=== PATIENT | male | born 1945 | race Caucasian/White ===

== ENCOUNTER 2020-09-03 03:14 | Emergency (ER) | payer MEDICARE, MEDICAID ==
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
[2020-09-03] MEDS ORDERED: Sodium Chloride 0.9% 10 ML Syringe FLUSH PRN (03:49)
[2020-09-03] MEDS ORDERED: Morphine 4 MG/ML VIAL IVPUSH ONE (05:17)
[2020-09-03] MEDS ORDERED: Ondansetron 4 MG/2 ML SDV IVPUSH ONE (05:17)
[2020-09-03] MEDS ORDERED: Sodium Chloride 0.9% 1,000 ML IV SCH (05:30)
--- NOTE | 2020-09-05 12:47 | CR ---
INDICATION: Fall with injury. PELVIS ONE VIEW: A single frontal view of the pelvis was obtained 09/03/20 and compared with 10/21/13. Femoral prosthesis on the left appears unchanged. A definite acute fracture or dislocation was not identified with sacroiliac joints and the right joint appearing intact. IMPRESSION: No acute fracture or dislocation. If symptoms persist - if occult fracture site is suspected clinically, reexamination in 10-14 days may be helpful. MTDD
--- NOTE | 2020-09-05 12:50 | CR ---
INDICATION: Fall with injury. LEFT FEMUR: Four views of the left femur revealed an appearance of demineralization compatible with osteomalacia or osteoporosis. A definite acute fracture or dislocation, or other acute bone or joint abnormality, was not identified. Incidentally noted were calcifications in the distal deep femoral artery and popliteal artery as well as proximal calf arteries. IMPRESSION: 1. No acute fracture or dislocation. 2. Femoral prosthesis at the hip appears intact. YONNY
--- NOTE | 2020-09-05 12:54 | CR ---
INDICATION: Fall with injury, severe pain below knee. LEFT TIBIA AND FIBULA: Four views of the left tibia and fibula revealed a comminuted spiral fracture through the distal shaft extending into the distal metaphysis of the tibia with adequate position and alignment of the fracture fragments. A fibular fracture site was not visualized. The ankle mortise as visualized imperfectly, appeared to be intact. IMPRESSION: Comminuted fracture of the distal shaft through the distal metaphysis of the tibia with adequate position and alignment suggested. MTDD
== END 2020-09-03 07:04 ==
LOC: FB.ED 03:14
DX: S82.245A Nondisplaced spiral fracture of shaft of left tibia, initial encounter for closed fracture (principal); I25.10 Atherosclerotic heart disease of native coronary artery without angina pectoris; E78.00 Pure hypercholesterolemia, unspecified; I10 Essential (primary) hypertension; E11.51 Type 2 diabetes mellitus with diabetic peripheral angiopathy without gangrene; M19.90 Unspecified osteoarthritis, unspecified site; E66.9 Obesity, unspecified; Z79.82 Long term (current) use of aspirin; Z79.4 Long term (current) use of insulin; W01.0XXA Fall on same level from slipping, tripping and stumbling without subsequent striking against object, initial encounter
CPT/HCPCS: 29515; 36415; 72170; 73552; 73590; 80053; 83735; 85025; 86140; 96374; 96375; 99285; J2270; J2405; J7030

== ENCOUNTER 2020-10-11 17:58 | Emergency (ER) | payer MEDICARE, MEDICAID ==
[2020-10-11] MEDS ORDERED: Ondansetron 4 MG Tab.DIS PO ONE (17:59)
[2020-10-11] MEDS ORDERED: Sodium Chloride 0.9% 10 ML Syringe FLUSH PRN (18:10)
[2020-10-11] MEDS: Dextrose 5%-0.9% NaCl 1,000 ML IV SCH (18:26)
[2020-10-11] MEDS: Ondansetron 4 MG/2 ML SDV IVPUSH STA (18:26)
[2020-10-11] MEDS: Metoclopramide 10 MG/2 ML SDV IVPUSH PRN (19:41)
[2020-10-11] MEDS: Promethazine 25 MG/ML SDV IM ONE (19:53)
[2020-10-11] MEDS: Iopamidol 755 Mg/ML 100 ML Bottle IV ONE (19:56)
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
--- NOTE | 2020-10-12 11:01 | CR ---
CHEST ONE VIEW 5472 INDICATION: Persistent nausea and vomiting. An AP upright portable view of the chest 10/11/2020 was compared with 01/15/2012 and 08/10/2013. The heart remains normal in size and shape. The aorta is calcified in the arch area. There is suggestion of some patchy infiltration at the left lateral lung base and possibly behind the heart raising question of a patchy pneumonia in the left lower lobe. No free air is noted under the hemidiaphragm leaves. Evidence of exogenous obesity is again noted. IMPRESSION: 1. Question patchy pneumonia at the left lower lobe and possibly lingula. 2. ASD aorta. 3. Exogenous obesity. MTDD
== END 2020-10-11 21:25 ==
LOC: FB.ED 17:58
DX: E86.0 Dehydration (principal); K52.9 Noninfective gastroenteritis and colitis, unspecified; I25.10 Atherosclerotic heart disease of native coronary artery without angina pectoris; E78.00 Pure hypercholesterolemia, unspecified; I10 Essential (primary) hypertension; M19.90 Unspecified osteoarthritis, unspecified site; E11.9 Type 2 diabetes mellitus without complications; E66.9 Obesity, unspecified; Z79.82 Long term (current) use of aspirin; Z79.4 Long term (current) use of insulin; Z79.899 Other long term (current) drug therapy
CPT/HCPCS: 36415; 71045; 74177; 80053; 82962; 84484; 85025; 93005; 96372; 96374; 96375; 99284; A9270; J2405; J2550; J2765; Q9967

== ENCOUNTER 2020-10-12 11:30 | Observation (INO) | payer MEDICARE, MEDICAID ==
[2020-10-12] MEDS ORDERED: Sodium Chloride 0.9% 1,000 ML IV ONE (11:40)
[2020-10-12] MEDS ORDERED: Metoclopramide 10 MG/2 ML SDV IVPUSH ONE (11:40)
[2020-10-12] MEDS ORDERED: Promethazine 25 MG/ML SDV IM ONE (11:41)
[2020-10-12] MEDS ORDERED: Piperacillin/Tazobactam 4.5 GM in Sodium Chloride 0.9% 100 ML IV STA (13:04)
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
[2020-10-12] MEDS: Sodium Chloride 0.9% 1,000 ML IV SCH ×2 (13:24→23:45)
[2020-10-12] MEDS ORDERED: Ondansetron 4 MG Tab.DIS *PTOM PO PRN (14:41)
[2020-10-12] MEDS ORDERED: Metoclopramide 10 MG/2 ML SDV IVPUSH PRN (14:52)
[2020-10-12] MEDS ORDERED: Acetaminophen 325 MG Tab PO PRN (14:52)
[2020-10-12] MEDS ORDERED: Bisacodyl 10 MG Supp RECTAL PRN (14:52)
[2020-10-12] MEDS ORDERED: Magnesium Hydroxide 400 MG/5 ML Susp 30 ML Cup PO PRN (14:52)
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
--- NOTE | 2020-10-12 15:30 | CR ---
CHEST ONE VIEW 5418 INDICATION: Nausea, vomiting, elevated white blood count. AP upright portable view of the chest 10/12/2020 was compared with 10/11/2020 and 08/10/2013. Detail is limited partly due to a very poor inspiration. Infiltration at the left lung base cannot be excluded. Pulmonary vascular congestion cannot be excluded. Heart size is difficult to evaluate but did not appear grossly enlarged allowing for the poor inspiration and AP positioning. The aorta is calcified in the arch area. No definite consolidating pneumonia or effusion was seen. IMPRESSION: 1. No definite acute process but cannot exclude areas of infiltrate in the left lung base and possibly right lung base due to poor inspiration. 2. Probable ASHD. 3. Exogenous obesity. 4. Cannot exclude a mild degree of pulmonary vascular congestion wether it be cardiac or noncardiac cause. MTDD
[2020-10-12] MEDS: Enoxaparin 40 MG/0.4 ML Syringe SUBCUT SCH (17:52)
[2020-10-12] MEDS: Simvastatin 10 MG Tab **OWN MED PO SCH (18:47)
[2020-10-12] MEDS: Acetaminophen 500 MG Tab PO SCH (21:00)
[2020-10-13] MEDS: Aspirin 81 MG Tab.EC PO SCH (08:57)
[2020-10-13] MEDS: Acetaminophen 500 MG Tab PO SCH ×2 (08:59→20:22)
[2020-10-13] MEDS ORDERED: Metoprolol Succinate 25 MG Tab.ER *PTOM PO SCH (09:00)
[2020-10-13] MEDS ORDERED: Lisinopril 10 MG Tab *PTOM PO SCH (09:00)
[2020-10-13] MEDS ORDERED: 50% Dextrose in Water 50 ML Syringe IVPUSH PRN (09:46)
[2020-10-13] MEDS ORDERED: Glucagon,Human Recombinant 1 MG Vial IM PRN (09:46)
[2020-10-13] MEDS: NOVOLOG 100 UNIT/ML SUBCUT SCH ×2 (11:40→17:29)
--- NOTE | 2020-10-13 15:32 | PCM.PN ---
- General Info Date of Service: 10/13/20 Subjective Update: Shahzad has not vomited since admission. Tolerated clear liquids this morning. Denies any abdominal pain. No cough or shortness of breath. Had oxygen on overnight. Denies being short of breath or chest pain this morning. - Patient Data Vitals - Most Recent: Last Vital Signs Temp 97.6 F 10/13/20 11:28 Pulse 80 10/13/20 11:28 Resp 20 10/13/20 11:28 BP 143/81 H 10/13/20 11:28 Pulse Ox 91 L 10/13/20 11:28 Weight - Most Recent: 260 lb 8 oz I&O - Last 24 Hours: Intake & Output 10/13/20 10/13/20 10/13/20 06:59 14:59 22:59 Intake Total 880 309 Output Total 500 Balance 380 309 Lab Results Last 24 Hours: Laboratory Results - last 24 hr 10/13/20 10/13/20 Range/Units 06:45 06:45 WBC 7.1 (3.2-10.1) x10-3/uL RBC 4.25 (3.90-5.90) x10(6)uL Hgb 11.3 L (12.9-17.7) g/dL Hct 34.9 L (38.3-50.1) % MCV 81.9 (80.8-98.7) fL MCH 26.6 L (27.0-33.3) pg MCHC 32.5 (28.7-35.3) g/dL RDW 14.2 (12.4-15.0) % Plt Count 114 L (117-477) x10(3)uL MPV 9.0 (6.7-11.0) fL Neut % (Auto) 71.2 (40.3-71.8) % Lymph % (Auto) 15.8 (15.8-45.3) % [place] % (Auto) 9.2 (5.5-15.2) % Eos % (Auto) 3.3 (0.1-6.8) % Baso % (Auto) 0.5 (0.3-3.8) % Neut # (Auto) 5.1 (1.7-6.9) x10-3/uL Lymph # (Auto) 1.1 (0.5-4.5) x10-3/uL [place] # (Auto) 0.7 (0.0-1.2) x10-3/uL Eos # (Auto) 0.2 (0.0-0.6) x10-3/uL Baso # (Auto) 0.0 (0.0-0.3) x10-3/uL Sodium 142 (135-145) mmol/L Potassium 4.0 (3.5-5.3) mmol/L Chloride 105 (100-110) mmol/L Carbon Dioxide 29 (21-32) mmol/L BUN 15 (7-18) mg/dL Creatinine 1.0 (0.70-1.30) mg/dL Est Cr Clr Drug Dosing 67.93 mL/min Estimated GFR (MDRD) > 60 (>60) BUN/Creatinine Ratio 15.0 (9-20) Glucose 146 H (80-116) mg/dL Calcium 7.7 L (8.6-10.2) mg/dL Rachid Results Last 24 Hours: Microbiology 10/12/20 12:40 Aerobic Blood Culture - Preliminary Blood - Venous NO GROWTH AFTER 1 DAY Anaerobic Blood Culture - Preliminary NO GROWTH AFTER 1 DAY 10/12/20 12:50 Aerobic Blood Culture - Preliminary Blood - Venous - Lab Draw NO GROWTH AFTER 1 DAY Anaerobic Blood Culture - Preliminary NO GROWTH AFTER 1 DAY Med Orders - Current: Current Medications Acetaminophen (Acetaminophen 325 Mg Tab) 650 mg PO Q4H PRN PRN Reason: Pain/Fever Acetaminophen (Acetaminophen 500 Mg Tab) 500 mg PO BID [facility] Last Admin: 10/13/20 08:59 Dose: 500 mg Documented by: Aspirin (Aspirin 81 Mg Tab.Ec) 81 mg PO DAILY [facility] Last Admin: 10/13/20 08:57 Dose: 81 mg Documented by: Bisacodyl (Bisacodyl 10 Mg Supp) 10 mg RECTAL DAILY PRN PRN Reason: Constipation Dextrose/Water (50% Dextrose In Water 50 Ml Syringe) 50 ml IVPUSH ASDIRECTED PRN PRN Reason: Hypoglycemia Enoxaparin Sodium (Enoxaparin 40 Mg/0.4 Ml Syringe) 40 mg SUBCUT Q24H [facility] Last Admin: 10/12/20 17:52 Dose: 40 mg Documented by: Glucagon (Glucagon,Human Recombinant 1 Mg Vial) 1 mg IM ASDIRECTED PRN PRN Reason: Hypoglycemia Insulin Human Lispro (Novolog 100units/Ml *Ptom) 0 unit SUBCUT TIDMEALS [facility]; Protocol Last Admin: 10/13/20 11:40 Dose: 2 units Documented by: Lisinopril (Lisinopril 10 Mg Tab *Ptom) 10 mg PO DAILY [facility] Last Admin: 10/13/20 08:58 Dose: 10 mg Documented by: Magnesium Hydroxide (Magnesium Hydroxide 400 Mg/5 Ml Susp 30 Ml Cup) 30 ml PO DAILY PRN PRN Reason: Constipation Metoclopramide HCl (Metoclopramide 10 Mg/2 Ml Sdv) 10 mg IVPUSH Q6H PRN PRN Reason: Nausea/Vomiting Metoprolol Succinate (Metoprolol Succinate 25 Mg Tab.Er *Ptom) 25 mg PO DAILY [facility] Last Admin: 10/13/20 08:58 Dose: 25 mg Documented by: Ondansetron HCl (Ondansetron 4 Mg Tab.Dis *Ptom) 4 mg PO Q6H PRN PRN Reason: nausea, able to take PO Simvastatin (Simvastatin 10 Mg Tab Own Med) 10 mg PO DAILY@1800 [facility] Last Admin: 10/12/20 18:47 Dose: 10 mg Documented by: Discontinued Medications Sodium Chloride (Normal Saline) 1,000 mls @ 999 mls/hr IV .BOLUS ONE Stop: 10/12/20 12:40 Last Admin: 10/12/20 12:00 Dose: 999 mls/hr Documented by: Piperacillin Sod/Tazobactam (Sod 4.5 gm/ Sodium Chloride) 100 mls @ 200 mls/hr IV NOW STA Stop: 10/12/20 13:33 Last Admin: 10/12/20 13:19 Dose: 200 mls/hr Documented by: Sodium Chloride (Normal Saline) 1,000 mls @ 100 mls/hr IV ASDIRECTED [facility] Last Admin: 10/12/20 23:45 Dose: 100 mls/hr Documented by: Metoclopramide HCl (Metoclopramide 10 Mg/2 Ml Sdv) 10 mg IVPUSH ONETIME ONE Stop: 10/12/20 11:41 Last Admin: 10/12/20 12:02 Dose: 10 mg Documented by: Promethazine HCl (Promethazine 25 Mg/Ml Sdv) 25 mg IM ONETIME ONE Stop: 10/12/20 11:42 Last Admin: 10/12/20 12:02 Dose: 25 mg Documented by: - Exam General: Alert, Oriented, Cooperative, No Acute Distress Lungs: Clear to Auscultation, Normal Respiratory Effort, Crackles (LLL). No: Wheezing Cardiovascular: Regular Rate, Regular Rhythm GI/Abdominal Exam: Normal Bowel Sounds, Soft, Non-Tender, No Distention Extremities: Other (Cast on LLE, TEDs on RLE) Peripheral Pulses: 2+: Radial (L), Radial (R) - Patient Data Lab Results Last 24 hrs: Laboratory Results - last 24 hr 10/13/20 10/13/20 Range/Units 06:45 06:45 WBC 7.1 (3.2-10.1) x10-3/uL RBC 4.25 (3.90-5.90) x10(6)uL Hgb 11.3 L (12.9-17.7) g/dL Hct 34.9 L (38.3-50.1) % MCV 81.9 (80.8-98.7) fL MCH 26.6 L (27.0-33.3) pg MCHC 32.5 (28.7-35.3) g/dL RDW 14.2 (12.4-15.0) % Plt Count 114 L (117-477) x10(3)uL MPV 9.0 (6.7-11.0) fL Neut % (Auto) 71.2 (40.3-71.8) % Lymph % (Auto) 15.8 (15.8-45.3) % Pierce % (Auto) 9.2 (5.5-15.2) % Eos % (Auto) 3.3 (0.1-6.8) % Baso % (Auto) 0.5 (0.3-3.8) % Neut # (Auto) 5.1 (1.7-6.9) x10-3/uL Lymph # (Auto) 1.1 (0.5-4.5) x10-3/uL Pierce # (Auto) 0.7 (0.0-1.2) x10-3/uL Eos # (Auto) 0.2 (0.0-0.6) x10-3/uL Baso # (Auto) 0.0 (0.0-0.3) x10-3/uL Sodium 142 (135-145) mmol/L Potassium 4.0 (3.5-5.3) mmol/L Chloride 105 (100-110) mmol/L Carbon Dioxide 29 (21-32) mmol/L BUN 15 (7-18) mg/dL Creatinine 1.0 (0.70-1.30) mg/dL Est Cr Clr Drug Dosing 67.93 mL/min Estimated GFR (MDRD) > 60 (>60) BUN/Creatinine Ratio 15.0 (9-20) Glucose 146 H (80-116) mg/dL Calcium 7.7 L (8.6-10.2) mg/dL Result Diagrams: 10/13/20 06:45 10/13/20 06:45 Rachid Results Last 24 hrs: Microbiology 10/12/20 12:40 Aerobic Blood Culture - Preliminary Blood - Venous NO GROWTH AFTER 1 DAY Anaerobic Blood Culture - Preliminary NO GROWTH AFTER 1 DAY 10/12/20 12:50 Aerobic Blood Culture - Preliminary Blood - Venous - Lab Draw NO GROWTH AFTER 1 DAY Anaerobic Blood Culture - Preliminary NO GROWTH AFTER 1 DAY Sepsis Event Note - Evaluation Sepsis Screening Result: No Definite Risk - Focused Exam Vital Signs: Vital Signs Temp Pulse Pulse Resp BP BP Pulse Ox 10/13/20 11:28 97.6 F 80 20 143/81 H 91 L 10/13/20 09:01 10/13/20 08:58 76 138/73 10/13/20 08:45 10/13/20 08:37 10/13/20 08:36 97.9 F 76 20 138/73 96 10/13/20 06:00 97.9 F 82 18 112/60 92 L Pulse Ox 10/13/20 11:28 10/13/20 09:01 92 L 10/13/20 08:58 10/13/20 08:45 94 L 10/13/20 08:37 96 10/13/20 08:36 10/13/20 06:00 - Problem List & Annotations (1) Dehydration SNOMED Code(s): 76777908 Code(s): E86.0 - DEHYDRATION Status: Resolved Current Visit: Yes (2) Gastroenteritis SNOMED Code(s): 07928568 Code(s): K52.9 - NONINFECTIVE GASTROENTERITIS AND COLITIS, UNSPECIFIED Status: Acute Current Visit: Yes (3) Nausea and vomiting SNOMED Code(s): 00063419 Code(s): R11.2 - NAUSEA WITH VOMITING, UNSPECIFIED Status: Resolved Current Visit: Yes (4) Closed left tibial fracture SNOMED Code(s): 998991516, 25796848127611203 Code(s): S82.202A - UNSP FRACTURE OF SHAFT OF LEFT TIBIA, INIT FOR CLOS FX Status: Acute Current Visit: No Qualifiers: Encounter type: initial encounter Tibia location: shaft Fracture morphology: spiral Fracture alignment: nondisplaced Qualified Code(s): S8 2.245A - Nondisplaced spiral fracture of shaft of left tibia, initial encounter for closed fracture (5) Diabetes SNOMED Code(s): 71188497 Code(s): E11.9 - TYPE 2 DIABETES MELLITUS WITHOUT COMPLICATIONS Status: Chronic Current Visit: Yes - Problem List Review Problem List Initiated/Reviewed/Updated: Yes - My Orders Last 24 Hours: My Active Orders 10/12/20 14:41 Patient Status [ADT] Routine Oxygen Therapy [RC] PRN Up to Chair [RC] TID Vital Signs [RC] Q4H Ondansetron [Zofran ODT] 4 mg PO Q6H PRN Resuscitation Status Routine 10/12/20 14:45 Antiembolic Hose [OM.PC] Per Unit Routine 10/12/20 14:52 Acetaminophen [TylenoL] 650 mg PO Q4H PRN Magnesium Hydroxide [Milk of Magnesia] 30 ml PO DAILY PRN Metoclopramide [Reglan] 10 mg IVPUSH Q6H PRN bisacodyL [Dulcolax] 10 mg RECTAL DAILY PRN 10/12/20 17:00 Enoxaparin [Lovenox] 40 mg SUBCUT Q24H 10/12/20 18:45 Simvastatin [Zocor] 10 mg PO DAILY@1800 10/12/20 21:00 Acetaminophen [Tylenol Extra Strength] 500 mg PO BID 10/13/20 08:35 Convert IV to Peripheral Lock [Convert IV to Saline Lock] [OM.PC] Routine 10/13/20 09:00 Aspirin [Halfprin] 81 mg PO DAILY Metoprolol Succinate [Toprol XL] 25 mg PO DAILY lisinopriL [Prinivil] 10 mg PO DAILY 10/13/20 09:46 Blood Glucose Check, Bedside [RC] WITHMEALSANDBED Dextrose 50% in Water 50 ml IVPUSH ASDIRECTED PRN Glucagon,Human Recombinant [GlucaGen] 1 mg IM ASDIRECTED PRN 10/13/20 Lunch Soft Diet [DIET] 10/13/20 12:00 Insulin Lispro [HumaLOG] See Protocol SUBCUT TIDMEALS 10/14/20 Breakfast Consistent Carbohydrate Diet [DIET] - Plan Plan:: 1. Gastroenteritis/dehydration: WBC 7.1. Saline lock. Zofran ODT and Reglan IV as needed nausea/vomiting. 2. DM: restart insulin will do NovoLog sliding scale as just advancing his diet, repeat labs in am. Start Accuchecks ac&hs. 3. Diet: advance to soft consistent carb diet. 4. If tolerates advancement of diet, plan to discharge tomorrow. 5. Adjust treatments as necessary.
[2020-10-13] MEDS: Enoxaparin 40 MG/0.4 ML Syringe SUBCUT SCH (16:57)
[2020-10-13] MEDS: Simvastatin 10 MG Tab **OWN MED PO SCH (17:31)
[2020-10-14] MEDS ORDERED: Furosemide 20 MG/2 ML VIAL IVPUSH ONE (08:00)
--- NOTE | 2020-10-14 09:22 | PCM.DCSUM1 ---
Discharge Summary - Hospital Course HPI Initial Comments: Shahzad present with 1 day history of nausea, vomiting. Started yesterday at supper, was feeling fine when he sat down to eat but started vomiting when he got back to his room. Was seen in ER last night received IV fluids, antiemetics and sent back to [facility]. Continue to vomit this morning when he tried to eat breakfast, 4 emesis today so return to ER. WBC is elevated from yesterday 10.5 to 13.4. Denies any fevers, chills, sore throat, shortness of breath, chest pain. No diarrhea, hematemesis, black or bloody stool. States emesis was initially undigested food, then more white milky fluid. He does drink milk with all his meals. No dysuria, hematuria, frequency. No rashes. He feels it was the food as he felt fine before supper last night. States he is always hungry. Electrolytes were within normal limits in ER. Covid negative. Completed Covid vaccination first part of Aug 2020. He sustained left tibia fracture beginning of Aug, non weight bearing, requiring full body lift. Diagnosis: Stroke: No - Discharge Data Discharge Date: 10/14/20 Discharge Disposition: DC/Tfer to SNF 03 Condition: Good - Referral to Home Health Date of Face to Face Encounter: 10/14/20 Reason for Homebound Status: [facility] Resident Primary Care Physician: Temo Rodriguez MD Skilled Need: Nursing, PT/OT, medications - Discharge Diagnosis/Problem(s) (1) Dehydration SNOMED Code(s): 46564258 ICD Code: E86.0 - DEHYDRATION Status: Resolved Current Visit: Yes (2) Gastroenteritis SNOMED Code(s): 38649202 ICD Code: K52.9 - NONINFECTIVE GASTROENTERITIS AND COLITIS, UNSPECIFIED Status: Resolved Current Visit: Yes (3) Nausea and vomiting SNOMED Code(s): 81457121 ICD Code: R11.2 - NAUSEA WITH VOMITING, UNSPECIFIED Status: Resolved Current Visit: Yes (4) Closed left tibial fracture SNOMED Code(s): 909147242, 81066587985572672 ICD Code: S82.202A - UNSP FRACTURE OF SHAFT OF LEFT TIBIA, INIT FOR CLOS FX Status: Acute Current Visit: No Qualifiers: Encounter type: initial encounter Tibia location: shaft Fracture morphology: spiral Fracture alignment: nondisplaced Qualified Code(s): S82.245A - Nondisplaced spiral fracture of shaft of left tibia, initial encounter for closed fracture (5) Diabetes SNOMED Code(s): 95427305 ICD Code: E11.9 - TYPE 2 DIABETES MELLITUS WITHOUT COMPLICATIONS Status: Chronic Current Visit: Yes - Patient Summary/Data Hospital Course: Shahzad was given IV fluids at 100 ml/hr, zofran & reglan given in ER. He had no further emesis since admission. His diet was advanced, started insulin sliding scale when he was on clears, tolerated this. Advanced to soft consistent carb diet, which he tolerated. Resumed his home insulin regiment when he was advanced to consistent carb diet. He had no abdominal pain, nausea or vomiting with diet advancement. He remained afebrile, WBC was normal at 7.1 yesterday. Labs corrected with IVF, they were discontinued 10/13, had some crackles on exam, they did improved throughout day, started Incentive spirometry. His home medication cassette last doses were 10/13, had no new cassettes to give his morning medications so will have to have these once he gets back to [facility]. Did give Lasix 20 mg x 1 for his blood pressure this morning since his metoprolol and Lisinopril he won't get until he gets back home. - Patient Instructions Diet: Usual Diet as Tolerated Activity: Non Weight Bearing Driving: Do Not Drive Notify Provider of: Fever, Increased Pain, Nausea and/or Vomiting Other/Special Instructions: Follow up with Dr Rodriguez in 1 week for post hospital visit. - Discharge Plan *PRESCRIPTION DRUG MONITORING PROGRAM REVIEWED*: Not Applicable *COPY OF PRESCRIPTION DRUG MONITORING REPORT IN PATIENT CEFERINO: Not Applicable Home Medications: Home Meds RX: Acetaminophen [Tylenol] 650 mg PO Q4H PRN 08/10/13 [History] RX: Insulin Aspart [NovoLOG] 20 unit SQ BID@08,12 09/03/20 [History] RX: Insulin Detemir [Levemir] 36 unit SQ BEDTIME 09/03/20 [History] RX: Multivit-Min/FA/Lycopene/Lut [Senior Tabs] 1 each PO DAILY 09/03/20 [History] RX: Acetaminophen [Tylenol Extra Strength] 500 mg PO BID 10/11/20 [History] RX: Cholecalciferol (Vitamin D3) [Vitamin D3] 25 mcg PO DAILY 10/11/20 [History] RX: Insulin Aspart [NovoLOG] 8 unit SQ 1700 10/11/20 [History] RX: Insulin Detemir [Levemir] 22 unit SUBCUT DAILY 10/11/20 [History] RX: Metoprolol Succinate 25 mg PO DAILY 10/11/20 [History] RX: lisinopriL [Lisinopril] 10 mg PO DAILY 10/11/20 [History] RX: Aspirin [Halfprin] 81 mg PO DAILY 10/12/20 [History] RX: Bisacodyl [Laxative Suppository] 10 mg RC DAILY PRN 10/12/20 [History] RX: Diclofenac Sodium [Voltaren 1% Gel] 2 gm TOP BID PRN 10/12/20 [History] RX: Magnesium Hydroxide [Milk of Magnesia] 30 ml PO DAILY PRN 10/12/20 [History] RX: Nystatin [Nystop] 1 applic TP BID PRN 10/12/20 [History] RX: Ondansetron [Zofran ODT] 4 mg PO Q4H PRN 10/12/20 [History] RX: Simvastatin [Zocor] 10 mg PO QPM 10/12/20 [History] Oxygen Therapy Mode: Room Air Patient Handouts: Nausea and Vomiting, Adult, [id number], Fall Prevention in Hospitals, Adult Forms: ED Department Discharge Referrals: Temo Rodriguez MD [Primary Care Provider] - - Discharge Summary/Plan Comment DC Time >30 min.: No - General Info Date of Service: 10/14/20 Subjective Update: Shahzad denies any abdominal pain, nausea or vomiting. No fevers, chills. no shortness of breath or chest pain. Had a cough this morning when they got him up but nothing since. Not sure why he is here. - Patient Data Vitals - Most Recent: Last Vital Signs Temp 98.0 F 10/13/20 21:59 Pulse 85 10/13/20 21:59 Resp 18 10/14/20 02:00 BP 125/55 L 10/13/20 21:59 Pulse Ox 93 L 10/13/20 21:59 Weight - Most Recent: 260 lb 8 oz Lab Results - Last 24 hrs: Laboratory Results - last 24 hr 10/13/20 10/13/20 10/13/20 Range/Units 11:37 16:59 20:18 POC Glucose 180 H 180 H 269 H (74-100) mg/dL BREANNE Results - Last 24 hrs: Microbiology 10/12/20 12:40 Aerobic Blood Culture - Preliminary Blood - Venous NO GROWTH AFTER 1 DAY Anaerobic Blood Culture - Preliminary NO GROWTH AFTER 1 DAY 10/12/20 12:50 Aerobic Blood Culture - Preliminary Blood - Venous - Lab Draw NO GROWTH AFTER 1 DAY Anaerobic Blood Culture - Preliminary NO GROWTH AFTER 1 DAY Med Orders - Current: Current Medications Acetaminophen (Acetaminophen 325 Mg Tab) 650 mg PO Q4H PRN PRN Reason: Pain/Fever Acetaminophen (Acetaminophen 500 Mg Tab) 500 mg PO BID COUNTS INCLUDE 234 BEDS AT THE [facility] Last Admin: 10/13/20 20:22 Dose: 500 mg Documented by: Aspirin (Aspirin 81 Mg Tab.Ec) 81 mg PO DAILY COUNTS INCLUDE 234 BEDS AT THE [facility] Last Admin: 10/13/20 08:57 Dose: 81 mg Documented by: Bisacodyl (Bisacodyl 10 Mg Supp) 10 mg RECTAL DAILY PRN PRN Reason: Constipation Dextrose/Water (50% Dextrose In Water 50 Ml Syringe) 50 ml IVPUSH ASDIRECTED PRN PRN Reason: Hypoglycemia Enoxaparin Sodium (Enoxaparin 40 Mg/0.4 Ml Syringe) 40 mg SUBCUT Q24H COUNTS INCLUDE 234 BEDS AT THE [facility] Last Admin: 10/13/20 16:57 Dose: 40 mg Documented by: Glucagon (Glucagon,Human Recombinant 1 Mg Vial) 1 mg IM ASDIRECTED PRN PRN Reason: Hypoglycemia Lisinopril (Lisinopril 10 Mg Tab *Ptom) 10 mg PO DAILY COUNTS INCLUDE 234 BEDS AT THE [facility] Last Admin: 10/13/20 08:58 Dose: 10 mg Documented by: Magnesium Hydroxide (Magnesium Hydroxide 400 Mg/5 Ml Susp 30 Ml Cup) 30 ml PO DAILY PRN PRN Reason: Constipation Metoclopramide HCl (Metoclopramide 10 Mg/2 Ml Sdv) 10 mg IVPUSH Q6H PRN PRN Reason: Nausea/Vomiting Metoprolol Succinate (Metoprolol Succinate 25 Mg Tab.Er *Ptom) 25 mg PO DAILY COUNTS INCLUDE 234 BEDS AT THE [facility] Last Admin: 10/13/20 08:58 Dose: 25 mg Documented by: (Insulin Aspart [ Novolog] 100 Unit/Ml Pen) *Ptom 8 unit SQ 1700 COUNTS INCLUDE 234 BEDS AT THE [facility] (Insulin Aspart [ Novolog] 100 Unit/Ml Pen) *Ptom 20 unit SQ BID@08,12 TESHA (Insulin Detemir [ Levemir] 100 Unit/Ml Pen) *Ptom 22 unit SUBCUT DAILY TESHA (Insulin Detemir [ Levemir] 100 Unit/Ml Vial) *Ptom 36 unit SQ BEDTIME TESHA Ondansetron HCl (Ondansetron 4 Mg Tab.Dis *Ptom) 4 mg PO Q6H PRN PRN Reason: nausea, able to take PO Simvastatin (Simvastatin 10 Mg Tab Own Med) 10 mg PO DAILY@1800 TESHA Last Admin: 10/13/20 17:31 Dose: 10 mg Documented by: Discontinued Medications Furosemide (Furosemide 20 Mg/2 Ml Vial) 20 mg IVPUSH NOW ONE Stop: 10/14/20 08:01 Sodium Chloride (Normal Saline) 1,000 mls @ 999 mls/hr IV .BOLUS ONE Stop: 10/12/20 12:40 Last Admin: 10/12/20 12:00 Dose: 999 mls/hr Documented by: Piperacillin Sod/Tazobactam (Sod 4.5 gm/ Sodium Chloride) 100 mls @ 200 mls/hr IV NOW STA Stop: 10/12/20 13:33 Last Admin: 10/12/20 13:19 Dose: 200 mls/hr Documented by: Sodium Chloride (Normal Saline) 1,000 mls @ 100 mls/hr IV ASDIRECTED COUNTS INCLUDE 234 BEDS AT THE [facility] Last Admin: 10/12/20 23:45 Dose: 100 mls/hr Documented by: Insulin Human Lispro (Novolog 100units/Ml *Ptom) 0 unit SUBCUT TIDMEALS COUNTS INCLUDE 234 BEDS AT THE [facility]; Protocol Last Admin: 10/13/20 17:29 Dose: 2 units Documented by: Metoclopramide HCl (Metoclopramide 10 Mg/2 Ml Sdv) 10 mg IVPUSH ONETIME ONE Stop: 10/12/20 11:41 Last Admin: 10/12/20 12:02 Dose: 10 mg Documented by: Promethazine HCl (Promethazine 25 Mg/Ml Sdv) 25 mg IM ONETIME ONE Stop: 10/12/20 11:42 Last Admin: 10/12/20 12:02 Dose: 25 mg Documented by: - Exam General: Reports: Alert, Oriented, Cooperative, No Acute Distress Lungs: Reports: Clear to Auscultation, Normal Respiratory Effort, Crackles (occasional). Denies: Wheezing Cardiovascular: Reports: Regular Rate, Regular Rhythm GI/Abdominal Exam: Normal Bowel Sounds, Soft, Non-Tender, No Distention Extremities: Other (cast on LLE)
[2020-10-14] MEDS: INSULIN ASPART 100 UNIT/ML SQ SCH ×2 (09:27→09:32)
[2020-10-14] MEDS: Acetaminophen 500 MG Tab PO SCH (09:28)
[2020-10-14] MEDS: INSULIN DETEMIR 100 UNIT/ML SUBCUT SCH ×2 (09:28→09:33)
[2020-10-14] MEDS: Aspirin 81 MG Tab.EC PO SCH (09:30)
[2020-10-14] MEDS ORDERED: Furosemide 20 MG Tab ONE (10:03)
[2020-10-14] MEDS ORDERED: Furosemide 20 MG Tab PO ONE (10:15)
[2020-10-14] MEDS ORDERED: INSULIN ASPART 100 UNIT/ML SQ SCH (17:00)
[2020-10-14] MEDS ORDERED: INSULIN DETEMIR 100 UNIT/ML SQ SCH (21:00)
== END 2020-10-14 10:10 ==
LOC: FB.ED 11:30 → INTOOBSV 14:00 → FB.MS 14:00
PROVIDERS: ADMIT Family Medicine; ATTEND Family Medicine
DX: K52.9 Noninfective gastroenteritis and colitis, unspecified (principal); I25.10 Atherosclerotic heart disease of native coronary artery without angina pectoris; E78.00 Pure hypercholesterolemia, unspecified; S82.202A Unspecified fracture of shaft of left tibia, initial encounter for closed fracture; E11.51 Type 2 diabetes mellitus with diabetic peripheral angiopathy without gangrene; E66.9 Obesity, unspecified; E86.0 Dehydration; Z20.822 Contact with and (suspected) exposure to COVID-19; Z79.899 Other long term (current) drug therapy; Z79.82 Long term (current) use of aspirin; Z98.890 Other specified postprocedural states; Z87.891 Personal history of nicotine dependence; Z79.4 Long term (current) use of insulin
CPT/HCPCS: 36415; 71045; 80048; 80053; 82962; 83605; 85025; 87040; 94150; 94760; 96365; 96372; 96375; 99283; 99285-25; A9270-GY; G0378; J1650; J1815; J2543; J2550; J2765; J7030; U0002

== ENCOUNTER 2022-11-16 21:10 | Emergency (ER) | payer MEDICARE, MEDICAID ==
[2022-11-16] MEDS ORDERED: Sodium Chloride 0.9% 10 ML Syringe FLUSH PRN (21:21)
[2022-11-16] MEDS ORDERED: Sodium Chloride 0.9% 1,000 ML IV SCH (21:30)
[2022-11-16 21:50] LABS: BASOPHILS PERCENT AUTO 0.2 % (0.3-3.8); EOSINOPHILS PERCENT AUTO 0.1 % (0.1-6.8); HEMATOCRIT 42.3 % (38.3-50.1); HEMOGLOBIN 13.9 g/dL (12.9-17.7); LYMPHOCYTES ABSOLUTE AUTO 0.8 x10-3/uL (0.5-4.5); LYMPHOCYTES PERCENT AUTO 9.6 % (15.8-45.3); MEAN CORPUSCULAR HEMOGLOBIN 27.2 pg (27.0-33.3); MEAN CORPUSCULAR HGB CONC 32.9 g/dL (28.7-35.3); MEAN CORPUSCULAR VOLUME 82.6 fL (80.8-98.7); MEAN PLATELET VOLUME 8.4 fL (6.7-11.0); MONOCYTES ABSOLUTE AUTO 1.1 x10-3/uL (0.0-1.2); MONOCYTES PERCENT AUTO 12.6 % (5.5-15.2); NEUTROPHILS ABSOLUTE AUTO 6.6 x10-3/uL (1.7-6.9); NEUTROPHILS PERCENT AUTO 77.5 % (40.3-71.8); PLATELET COUNT,PLT 100 x10(3)uL (117-477); RED BLOOD CELL COUNT 5.12 x10(6)uL (3.90-5.90); RED CELL DISTRIBUTION WIDTH 14.1 % (12.4-15.0); WHITE BLOOD CELL COUNT,WBC 8.6 x10-3/uL (3.2-10.1)
[2022-11-16 21:57] LABS: A/G RATIO 0.7; ALANINE AMINOTRANSFERASE,ALT 47 U/L (12-36); ALBUMIN 3.4 g/dL (3.2-4.6); ALKALINE PHOSPHATASE 83 IU/L (56-112); ASPARTATE AMNIOTRANSFERASE,AST 38 IU/L (5-25); BILIRUBIN TOTAL 0.6 mg/dL (0.1-1.3); BLOOD UREA NITROGEN,BUN 27 mg/dL (7-18); BUN/CREATININE RATIO 20.8 (9-20); CALCIUM 9.4 mg/dL (8.6-10.2); CARBON DIOXIDE,CO2 30 mmol/L (21-32); CHLORIDE,CL 97 mmol/L (100-110); CREATININE 1.3 mg/dL (0.70-1.30); ESTIMATED GFR 57 mL/min (>60); GLUCOSE RANDOM 466 mg/dL (80-116); POTASSIUM,K 4.3 mmol/L (3.5-5.3); SODIUM,NA 134 mmol/L (135-145)
[2022-11-16] MEDS ORDERED: Glucagon,Human Recombinant 1 MG Vial IM PRN (22:06)
[2022-11-16] MEDS ORDERED: 50% Dextrose in Water 50 ML Syringe IVPUSH PRN (22:06)
[2022-11-16] MEDS ORDERED: Insulin Regular, Human 100 Units/ML 3 ML Vial SUBCUT ONE (22:06)
[2022-11-17] MEDS ORDERED: Insulin Regular, Human 10 UNIT in Dextrose 10% in Water 499.9 ML IV SCH ×2 (00:15)
[2022-11-17] MEDS ORDERED: Insulin Regular, Human 100 Units/ML 3 ML Vial IV ONE (00:24)
[2022-11-17] MEDS ORDERED: Insulin Regular in 0.9 % NACL 100 ML IV SCH (00:30)
[2022-11-17] MEDS ORDERED: Insulin Regular in 0.9 % NACL 100 ML IV STA (01:10)
[2022-11-17] MEDS ORDERED: Sodium Chloride 0.9% 1,000 ML IV SCH (01:15)
[2022-11-17 02:01] LABS: APPEARANCE,URINE SLIGHTLY CLOUDY (CLEAR); BACTERIA,URINE MANY (NS); BILIRUBIN,URINE NEGATIVE (NEGATIVE); COLOR,URINE YELLOW (YELLOW); EPITHELIAL CELLS,URINE OCCASIONAL; GLUCOSE,URINE >1000 mg/dL (NORMAL); KETONES,URINE NEGATIVE (NEGATIVE); LEUKOCYTE ESTERASE,URINE MODERATE (NEGATIVE); NITRITE,URINE NEGATIVE (NEGATIVE); OCCULT BLOOD,URINE LARGE (NEGATIVE); PROTEIN,URINE 30 mg/dL (NEGATIVE); UROBILINOGEN,URINE NORMAL (NEGATIVE); WBC,URINE 40-50 (0-5)
== END 2022-11-17 03:20 ==
LOC: FB.ED 21:10
DX: E11.65 Type 2 diabetes mellitus with hyperglycemia (principal); I25.10 Atherosclerotic heart disease of native coronary artery without angina pectoris; I10 Essential (primary) hypertension; E78.00 Pure hypercholesterolemia, unspecified; E66.9 Obesity, unspecified; Z79.4 Long term (current) use of insulin; Z79.899 Other long term (current) drug therapy
CPT/HCPCS: 36415; 71045; 80053; 81001; 82947; 83605; 85025; 86140; 87086; 87088; 87186; 96360; 96361; 99283; 99285-25; C1758; J1815-GY; J7030

== ENCOUNTER 2023-07-26 11:42 | Emergency (ER) | payer MEDICARE, MEDICAID ==
[2023-07-26] MEDS ORDERED: Albuterol/Ipratropium 3.0-0.5 MG/3 ML Neb Soln NEB ONE (12:28)
[2023-07-26 12:49] LABS: BASOPHILS PERCENT AUTO 0.1 % (0.3-3.8); HEMATOCRIT 40.8 % (38.3-50.1); HEMOGLOBIN 13.4 g/dL (12.9-17.7); LYMPHOCYTES ABSOLUTE AUTO 1.1 x10-3/uL (0.5-4.5); LYMPHOCYTES PERCENT AUTO 7.9 % (15.8-45.3); MEAN CORPUSCULAR HEMOGLOBIN 27.4 pg (27.0-33.3); MEAN CORPUSCULAR HGB CONC 32.9 g/dL (28.7-35.3); MEAN CORPUSCULAR VOLUME 83.5 fL (80.8-98.7); MONOCYTES ABSOLUTE AUTO 1.3 x10-3/uL (0.0-1.2); MONOCYTES PERCENT AUTO 9.6 % (5.5-15.2); NEUTROPHILS ABSOLUTE AUTO 11.1 x10-3/uL (1.7-6.9); NEUTROPHILS PERCENT AUTO 82.4 % (40.3-71.8); PLATELET COUNT,PLT 111 x10(3)uL (117-477); RED BLOOD CELL COUNT 4.89 x10(6)uL (3.90-5.90); RED CELL DISTRIBUTION WIDTH 14.6 % (12.4-15.0); WHITE BLOOD CELL COUNT,WBC 13.5 x10-3/uL (3.2-10.1)
[2023-07-26 13:00] LABS: BASE EXCESS VENOUS,POC 3 mmol/L (-2 - 3+); PCO2 VENOUS,POC 33 mmHg (41-51)
[2023-07-26 13:04] LABS: A/G RATIO 0.7; ALANINE AMINOTRANSFERASE,ALT 31 U/L (12-36); ALKALINE PHOSPHATASE 56 IU/L (56-112); ASPARTATE AMNIOTRANSFERASE,AST 19 IU/L (5-25); BILIRUBIN TOTAL 0.5 mg/dL (0.1-1.3); BLOOD UREA NITROGEN,BUN 29 mg/dL (7-18); BUN/CREATININE RATIO 22.3 (9-20); CALCIUM 8.9 mg/dL (8.6-10.2); CARBON DIOXIDE,CO2 30 mmol/L (21-32); CHLORIDE,CL 96 mmol/L (100-110); CREATININE 1.3 mg/dL (0.70-1.30); ESTIMATED GFR 57 mL/min (>60); POTASSIUM,K 4.3 mmol/L (3.5-5.3); PROTEIN TOTAL,TP 7.3 g/dL (6.0-8.0); SODIUM,NA 133 mmol/L (135-145)
[2023-07-26 13:10] LABS: TROPONIN I 15.7 pg/mL (4.0-60.3)
[2023-07-26 13:14] LABS: GLUCOSE RANDOM 449 mg/dL (80-116)
[2023-07-26 13:15] LABS: LACTIC ACID 2.4 mmol/L (0.4-2.0)
[2023-07-26 13:41] LABS: BILIRUBIN,URINE NEGATIVE (NEGATIVE); GLUCOSE,URINE 250 mg/dL (NORMAL); KETONES,URINE 15 mg/dL (NEGATIVE); LEUKOCYTE ESTERASE,URINE NEGATIVE (NEGATIVE); NITRITE,URINE NEGATIVE (NEGATIVE); OCCULT BLOOD,URINE NEGATIVE (NEGATIVE); PROTEIN,URINE 30 mg/dL (NEGATIVE); UROBILINOGEN,URINE NORMAL (NEGATIVE)
[2023-07-26 13:44] LABS: APPEARANCE,URINE SLIGHTLY CLOUDY (CLEAR); BACTERIA,URINE FEW (NS); COARSE GRANULAR CASTS,URINE FEW (NS); COLOR,URINE YELLOW (YELLOW); RBC,URINE 0-5 (0-5); SQUAMOUS EPITHELIAL CELLS,UR FEW (NS,R,O); WBC,URINE 0-5 (0-5)
[2023-07-26 13:49] LABS: INFLUENZA A NAA NEGATIVE (NEGATIVE); INFLUENZA B NAA NEGATIVE (NEGATIVE)
[2023-07-26 14:01] LABS: CORONAVIRUS COVID-19 NAA NEGATIVE (NEGATIVE)
[2023-07-26] MEDS ORDERED: Sodium Chloride 0.9% 1,000 ML IV SCH (15:00)
[2023-07-26] MEDS ORDERED: Piperacillin/Tazobactam 4.5 GM in Sodium Chloride 0.9% 100 ML IV STA (15:45)
[2023-07-26] MEDS ORDERED: VANCOmycin 2 GM/400 ML 2 GM in Premix Bag 1 BAG IV STA (15:45)
[2023-07-26] MEDS ORDERED: Insulin Lispro 100 Unit/ML 3 ML KwikPen SUBCUT STA (17:44)
[2023-07-26] MEDS ORDERED: 50% Dextrose in Water 50 ML Syringe IVPUSH PRN (17:44)
[2023-07-26] MEDS ORDERED: Glucagon,Human Recombinant 1 MG Vial IM PRN (17:44)
[2023-07-26 19:22] LABS: LACTIC ACID 1.7 mmol/L (0.4-2.0)
== END 2023-07-26 20:50 ==
LOC: FB.ED 11:42
DX: A41.9 Sepsis, unspecified organism (principal); R09.02 Hypoxemia; E11.9 Type 2 diabetes mellitus without complications; I10 Essential (primary) hypertension; E78.5 Hyperlipidemia, unspecified; I25.10 Atherosclerotic heart disease of native coronary artery without angina pectoris; E11.319 Type 2 diabetes mellitus with unspecified diabetic retinopathy without macular edema; E66.9 Obesity, unspecified; Z68.41 Body mass index [BMI] 40.0-44.9, adult; Z79.4 Long term (current) use of insulin; Z79.82 Long term (current) use of aspirin; Z79.899 Other long term (current) drug therapy; Z20.822 Contact with and (suspected) exposure to COVID-19
CPT/HCPCS: 0240U; 36415; 71045; 80053; 81001; 82947; 83605; 83880; 84484; 85025; 87040; 93005; 94640; 96365; 96366; 96367; 99285; J2543; J3370; J3490; J7030; J7620

== ENCOUNTER 2023-08-03 11:59 | Emergency (ER) | payer MEDICARE, MEDICAID ==
[2023-08-03] MEDS ORDERED: Sodium Chloride 0.9% 10 ML Syringe FLUSH PRN (12:11)
[2023-08-03 12:32] LABS: BASOPHILS PERCENT AUTO 0.3 % (0.3-3.8); EOSINOPHILS ABSOLUTE AUTO 0.3 x10-3/uL (0.0-0.6); EOSINOPHILS PERCENT AUTO 2.5 % (0.1-6.8); HEMATOCRIT 39.3 % (38.3-50.1); LYMPHOCYTES ABSOLUTE AUTO 2.2 x10-3/uL (0.5-4.5); LYMPHOCYTES PERCENT AUTO 17.1 % (15.8-45.3); MEAN CORPUSCULAR HEMOGLOBIN 27.2 pg (27.0-33.3); MEAN CORPUSCULAR HGB CONC 33.1 g/dL (28.7-35.3); MEAN CORPUSCULAR VOLUME 82.2 fL (80.8-98.7); MEAN PLATELET VOLUME 8.3 fL (6.7-11.0); MONOCYTES ABSOLUTE AUTO 0.9 x10-3/uL (0.0-1.2); MONOCYTES PERCENT AUTO 6.9 % (5.5-15.2); NEUTROPHILS ABSOLUTE AUTO 9.5 x10-3/uL (1.7-6.9); NEUTROPHILS PERCENT AUTO 73.2 % (40.3-71.8); PLATELET COUNT,PLT 172 x10(3)uL (117-477); RED BLOOD CELL COUNT 4.77 x10(6)uL (3.90-5.90); RED CELL DISTRIBUTION WIDTH 14.6 % (12.4-15.0); WHITE BLOOD CELL COUNT,WBC 12.9 x10-3/uL (3.2-10.1)
[2023-08-03 12:38] LABS: BASE EXCESS VENOUS,POC 10 mmol/L (-2 - 3+); PCO2 VENOUS,POC 41 mmHg (41-51); PH VENOUS,POC 7.53 pH Units (7.32-7.43)
[2023-08-03 12:39] LABS: BLOOD UREA NITROGEN,BUN 18 mg/dL (7-18); CALCIUM 8.8 mg/dL (8.6-10.2); CARBON DIOXIDE,CO2 37 mmol/L (21-32); CHLORIDE,CL 100 mmol/L (100-110); ESTIMATED GFR 78 mL/min (>60); GLUCOSE RANDOM 210 mg/dL (80-116); SODIUM,NA 136 mmol/L (135-145)
[2023-08-03 12:45] LABS: A/G RATIO 0.7; ALANINE AMINOTRANSFERASE,ALT 39 U/L (12-36); ALBUMIN 2.6 g/dL (3.2-4.6); ALKALINE PHOSPHATASE 49 IU/L (56-112); ASPARTATE AMNIOTRANSFERASE,AST 31 IU/L (5-25); BILIRUBIN TOTAL 0.6 mg/dL (0.1-1.3); PROTEIN TOTAL,TP 6.6 g/dL (6.0-8.0)
[2023-08-03 12:51] LABS: TROPONIN I 10.3 pg/mL (4.0-60.3)
[2023-08-03 12:54] LABS: D-DIMER QUANTITATIVE 2.22 mg/LFEU (0.0-0.59); INR 1.05 (1.00-1.24); PROTHROMBIN TIME 10.8 sec (9.0-11.1); PTT,PARTIAL THROMBOPLSTIN TIME 28.9 SECONDS (24.4-33.2)
[2023-08-03 13:06] LABS: LACTIC ACID 0.6 mmol/L (0.4-2.0)
[2023-08-03 13:15] LABS: INFLUENZA A NAA NEGATIVE (NEGATIVE); INFLUENZA B NAA NEGATIVE (NEGATIVE)
[2023-08-03 13:24] LABS: BILIRUBIN,URINE NEGATIVE (NEGATIVE); GLUCOSE,URINE NORMAL (NORMAL); KETONES,URINE 15 mg/dL (NEGATIVE); LEUKOCYTE ESTERASE,URINE NEGATIVE (NEGATIVE); NITRITE,URINE NEGATIVE (NEGATIVE); OCCULT BLOOD,URINE NEGATIVE (NEGATIVE); PROTEIN,URINE NEGATIVE (NEGATIVE); UROBILINOGEN,URINE NORMAL (NEGATIVE)
[2023-08-03 13:25] LABS: CORONAVIRUS COVID-19 NAA NEGATIVE (NEGATIVE)
[2023-08-03 13:26] LABS: APPEARANCE,URINE CLEAR (CLEAR); COLOR,URINE YELLOW (YELLOW)
[2023-08-03 13:29] LABS: BACTERIA,URINE RARE (NS); MUCUS,URINE FEW (NS); RBC,URINE 0-5 (0-5); SQUAMOUS EPITHELIAL CELLS,UR FEW (NS,R,O); WBC,URINE 0-5 (0-5)
[2023-08-03] MEDS ORDERED: Albuterol/Ipratropium 3.0-0.5 MG/3 ML Neb Soln NEB ONE (13:30)
[2023-08-03] MEDS ORDERED: methylPREDNISolone Sodium Succinate 125 MG/2 ML SDV IVPUSH ONE (13:31)
[2023-08-03] MEDS ORDERED: Iopamidol 755 Mg/ML 100 ML Bottle IV SCH (15:15)
== END 2023-08-03 16:35 | disposition home or self-care (01) ==
LOC: FB.ED 11:59
DX: J45.901 Unspecified asthma with (acute) exacerbation (principal); E66.2 Morbid (severe) obesity with alveolar hypoventilation
CPT/HCPCS: 0240U; 36415; 71045; 71275; 80053; 81001; 83605; 83880; 84484; 85025; 85379; 85610; 85730; 93005; 94640; 96374; 99285; J2930; J3490; Q9967; J7620

== ENCOUNTER 2024-11-23 20:04 | Emergency (ER) | payer MEDICARE, MEDICAID ==
[2024-11-23 20:56] LABS: BASOPHILS PERCENT AUTO 0.4 % (0.3-3.8); EOSINOPHILS ABSOLUTE AUTO 0.1 x10-3/uL (0.0-0.6); HEMATOCRIT 40.8 % (38.3-50.1); HEMOGLOBIN 13.6 g/dL (12.9-17.7); LYMPHOCYTES ABSOLUTE AUTO 1.1 x10-3/uL (0.5-4.5); LYMPHOCYTES PERCENT AUTO 12.3 % (15.8-45.3); MEAN CORPUSCULAR HEMOGLOBIN 27.2 pg (27.0-33.3); MEAN CORPUSCULAR HGB CONC 33.4 g/dL (28.7-35.3); MEAN CORPUSCULAR VOLUME 81.3 fL (80.8-98.7); MEAN PLATELET VOLUME 8.7 fL (6.7-11.0); MONOCYTES ABSOLUTE AUTO 0.8 x10-3/uL (0.0-1.2); MONOCYTES PERCENT AUTO 9.3 % (5.5-15.2); NEUTROPHILS ABSOLUTE AUTO 6.7 x10-3/uL (1.7-6.9); PLATELET COUNT,PLT 101 x10(3)uL (117-477); RED BLOOD CELL COUNT 5.01 x10(6)uL (3.90-5.90); RED CELL DISTRIBUTION WIDTH 14.8 % (12.4-15.0); WHITE BLOOD CELL COUNT,WBC 8.6 x10-3/uL (3.2-10.1)
[2024-11-23 21:06] LABS: A/G RATIO 0.8; ALANINE AMINOTRANSFERASE,ALT 28 U/L (12-36); ALBUMIN 3.4 g/dL (3.2-4.6); ALKALINE PHOSPHATASE 90 IU/L (56-112); ASPARTATE AMNIOTRANSFERASE,AST 20 IU/L (5-25); BILIRUBIN TOTAL 0.3 mg/dL (0.1-1.3); BLOOD UREA NITROGEN,BUN 46 mg/dL (7-18); BUN/CREATININE RATIO 20.9 (9-20); CALCIUM 8.8 mg/dL (8.6-10.2); CARBON DIOXIDE,CO2 30 mmol/L (21-32); CHLORIDE,CL 103 mmol/L (100-110); EST CRCL DRUG DOSING (CG) 29.03 mL/min; ESTIMATED GFR 30 mL/min (>60); GLUCOSE RANDOM 287 mg/dL (80-116); POTASSIUM,K 5.3 mmol/L (3.5-5.3); PROTEIN TOTAL,TP 7.8 g/dL (6.0-8.0); SODIUM,NA 139 mmol/L (135-145)
[2024-11-23 21:11] LABS: CREATININE 2.2 mg/dL (0.70-1.30)
[2024-11-23] MEDS ORDERED: Lidocaine 2% HCl 6 ML Jel MM STA (21:13)
[2024-11-23 21:21] LABS: LACTIC ACID 1.6 mmol/L (0.4-2.0)
[2024-11-23 21:51] LABS: BILIRUBIN,URINE NEGATIVE (NEGATIVE); GLUCOSE,URINE NORMAL (NORMAL); KETONES,URINE NEGATIVE (NEGATIVE); LEUKOCYTE ESTERASE,URINE MODERATE (NEGATIVE); NITRITE,URINE NEGATIVE (NEGATIVE); OCCULT BLOOD,URINE LARGE (NEGATIVE); PROTEIN,URINE NEGATIVE (NEGATIVE); UROBILINOGEN,URINE NORMAL (NEGATIVE)
[2024-11-23 21:52] LABS: APPEARANCE,URINE CLEAR (CLEAR); COLOR,URINE YELLOW (YELLOW)
[2024-11-23 21:53] LABS: BACTERIA,URINE FEW (NS); SQUAMOUS EPITHELIAL CELLS,UR OCCASIONAL (NS,R,O)
[2024-11-23] MEDS: Sodium Chloride 0.9% 1,000 ML IV SCH (22:40)
[2024-11-23] MEDS: cefTRIAXone 1 GM Vial IVPUSH STA (22:46)
== END 2024-11-24 00:20 ==
LOC: FB.ED 20:04
DX: E86.0 Dehydration (principal); N39.0 Urinary tract infection, site not specified; I25.10 Atherosclerotic heart disease of native coronary artery without angina pectoris; E78.00 Pure hypercholesterolemia, unspecified; I10 Essential (primary) hypertension; E11.9 Type 2 diabetes mellitus without complications; Z79.899 Other long term (current) drug therapy; Z79.4 Long term (current) use of insulin; Z79.82 Long term (current) use of aspirin; Z79.51 Long term (current) use of inhaled steroids
CPT/HCPCS: 36415; 70450; 71045; 72128; 72131; 72192; 80053; 81001; 83605; 84484; 85025; 87086; 87088; 87186; 96361; 96374; 99284; 99285; C1758; J0696; J7030

== ENCOUNTER 2024-12-20 14:54 | Emergency (ER) | payer MEDICARE, MEDICAID ==
[2024-12-20] MEDS ORDERED: Lidocaine 2% HCl 6 ML Jel ONE ×2 (15:19→15:52)
[2024-12-20 15:34] LABS: BASOPHILS ABSOLUTE AUTO 0.1 x10-3/uL (0.0-0.3); BASOPHILS PERCENT AUTO 0.5 % (0.3-3.8); EOSINOPHILS ABSOLUTE AUTO 0.1 x10-3/uL (0.0-0.6); HEMATOCRIT 38.6 % (38.3-50.1); HEMOGLOBIN 12.8 g/dL (12.9-17.7); LYMPHOCYTES ABSOLUTE AUTO 1.4 x10-3/uL (0.5-4.5); LYMPHOCYTES PERCENT AUTO 9.9 % (15.8-45.3); MEAN CORPUSCULAR HEMOGLOBIN 26.4 pg (27.0-33.3); MEAN CORPUSCULAR HGB CONC 33.2 g/dL (28.7-35.3); MEAN CORPUSCULAR VOLUME 79.7 fL (80.8-98.7); MEAN PLATELET VOLUME 8.2 fL (6.7-11.0); MONOCYTES ABSOLUTE AUTO 1.1 x10-3/uL (0.0-1.2); MONOCYTES PERCENT AUTO 7.8 % (5.5-15.2); NEUTROPHILS ABSOLUTE AUTO 11.3 x10-3/uL (1.7-6.9); NEUTROPHILS PERCENT AUTO 80.8 % (40.3-71.8); PLATELET COUNT,PLT 143 x10(3)uL (117-477); RED BLOOD CELL COUNT 4.84 x10(6)uL (3.90-5.90); RED CELL DISTRIBUTION WIDTH 15.3 % (12.4-15.0); WHITE BLOOD CELL COUNT,WBC 13.9 x10-3/uL (3.2-10.1)
[2024-12-20] MEDS: Lidocaine 2% HCl 6 ML Jel ONE ×2 (15:35→16:05)
[2024-12-20 15:37] LABS: BLOOD UREA NITROGEN,BUN 30 mg/dL (7-18); CALCIUM 9.7 mg/dL (8.6-10.2); CARBON DIOXIDE,CO2 35 mmol/L (21-32); CHLORIDE,CL 104 mmol/L (100-110); CREATININE 1.5 mg/dL (0.70-1.30); ESTIMATED GFR 48 mL/min (>60); GLUCOSE RANDOM 71 mg/dL (80-116); POTASSIUM,K 5.3 mmol/L (3.5-5.3); SODIUM,NA 142 mmol/L (135-145)
== END 2024-12-20 17:25 | disposition other institution (70) ==
LOC: FB.ED 14:54
DX: R33.0 Drug induced retention of urine (principal); I25.10 Atherosclerotic heart disease of native coronary artery without angina pectoris; I10 Essential (primary) hypertension; E11.9 Type 2 diabetes mellitus without complications; E66.9 Obesity, unspecified; E78.00 Pure hypercholesterolemia, unspecified; Z79.4 Long term (current) use of insulin; Z79.82 Long term (current) use of aspirin
CPT/HCPCS: 36415; 51701; 51702; 80048; 85025; 99285; A4353; A9270

== ENCOUNTER 2025-01-10 06:36 | Emergency (ER) | payer MEDICARE, MEDICAID ==
[2025-01-10 07:17] LABS: BASOPHILS PERCENT AUTO 0.3 % (0.3-3.8); EOSINOPHILS PERCENT AUTO 0.3 % (0.1-6.8); HEMATOCRIT 38.7 % (38.3-50.1); HEMOGLOBIN 12.8 g/dL (12.9-17.7); LYMPHOCYTES ABSOLUTE AUTO 1.2 x10-3/uL (0.5-4.5); LYMPHOCYTES PERCENT AUTO 10.2 % (15.8-45.3); MEAN CORPUSCULAR HEMOGLOBIN 26.3 pg (27.0-33.3); MEAN CORPUSCULAR HGB CONC 33.2 g/dL (28.7-35.3); MEAN CORPUSCULAR VOLUME 79.1 fL (80.8-98.7); MEAN PLATELET VOLUME 8.6 fL (6.7-11.0); MONOCYTES ABSOLUTE AUTO 0.8 x10-3/uL (0.0-1.2); MONOCYTES PERCENT AUTO 6.7 % (5.5-15.2); NEUTROPHILS ABSOLUTE AUTO 9.8 x10-3/uL (1.7-6.9); NEUTROPHILS PERCENT AUTO 82.5 % (40.3-71.8); PLATELET COUNT,PLT 157 x10(3)uL (117-477); RED BLOOD CELL COUNT 4.89 x10(6)uL (3.90-5.90); RED CELL DISTRIBUTION WIDTH 15.6 % (12.4-15.0); WHITE BLOOD CELL COUNT,WBC 11.9 x10-3/uL (3.2-10.1)
[2025-01-10] MEDS: Sodium Chloride 0.9% 1,000 ML IV ONE (07:18)
[2025-01-10] MEDS: Pantoprazole 40 MG Vial IVPUSH ONE (07:18)
[2025-01-10 07:25] LABS: BLOOD UREA NITROGEN,BUN 25 mg/dL (7-18); BUN/CREATININE RATIO 20.8 (9-20); CALCIUM 9.8 mg/dL (8.6-10.2); CARBON DIOXIDE,CO2 30 mmol/L (21-32); CHLORIDE,CL 99 mmol/L (100-110); CREATININE 1.2 mg/dL (0.70-1.30); ESTIMATED GFR 62 mL/min (>60); GLUCOSE RANDOM 173 mg/dL (80-116); POTASSIUM,K 4.4 mmol/L (3.5-5.3); SODIUM,NA 137 mmol/L (135-145)
[2025-01-10 07:31] LABS: A/G RATIO 0.8; ALANINE AMINOTRANSFERASE,ALT 56 U/L (12-36); ALBUMIN 3.4 g/dL (3.2-4.6); ALKALINE PHOSPHATASE 117 IU/L (56-112); ASPARTATE AMNIOTRANSFERASE,AST 41 IU/L (5-25); BILIRUBIN TOTAL 0.7 mg/dL (0.1-1.3); PROTEIN TOTAL,TP 7.9 g/dL (6.0-8.0)
[2025-01-10] MEDS: Iopamidol 755 Mg/ML 100 ML Bottle IV ONE (08:34)
[2025-01-10] MEDS ORDERED: Sodium Chloride 0.9% 1,000 ML IV SCH ×2 (09:30→09:51)
[2025-01-10] MEDS ORDERED: Ondansetron 4 MG/2 ML SDV IV PRN (09:51)
[2025-01-10] MEDS ORDERED: Acetaminophen 325 MG Tab PO PRN (09:51)
[2025-01-10] MEDS ORDERED: Albuterol 6.7 GM Inhaler INH PRN (09:51)
[2025-01-10] MEDS ORDERED: Diclofenac Sodium 1% Gel 100 GM Tube TOP PRN (09:51)
[2025-01-10] MEDS ORDERED: Dextrose 5%-0.9% NaCl 1,000 ML IV SCH (10:45)
[2025-01-10] MEDS: Insulin Lispro 100 Unit/ML 3 ML KwikPen SUBCUT SCH ×2 (13:15→17:56)
[2025-01-10 13:52] LABS: APPEARANCE,URINE SLIGHTLY CLOUDY (CLEAR); BILIRUBIN,URINE NEGATIVE (NEGATIVE); COLOR,URINE YELLOW (YELLOW); GLUCOSE,URINE NORMAL (NORMAL); KETONES,URINE NEGATIVE (NEGATIVE); LEUKOCYTE ESTERASE,URINE LARGE (NEGATIVE); NITRITE,URINE NEGATIVE (NEGATIVE); OCCULT BLOOD,URINE MODERATE (NEGATIVE); PROTEIN,URINE TRACE mg/dL (NEGATIVE); UROBILINOGEN,URINE NORMAL (NEGATIVE)
[2025-01-10 13:53] LABS: BACTERIA,URINE MODERATE (NS); SQUAMOUS EPITHELIAL CELLS,UR FEW (NS,R,O); WBC,URINE >100 (0-5)
[2025-01-10] MEDS: lamoTRIgine 25 MG Tab PO SCH (21:03)
[2025-01-10] MEDS: Pantoprazole 40 MG Vial IVPUSH SCH (21:03)
[2025-01-10] MEDS: Insulin Glargine,Human Rec. Analog 100 Units/ML 3 ML Pen SUBCUT SCH (21:11)
[2025-01-11 06:33] LABS: BASOPHILS PERCENT AUTO 0.4 % (0.3-3.8); EOSINOPHILS ABSOLUTE AUTO 0.2 x10-3/uL (0.0-0.6); EOSINOPHILS PERCENT AUTO 2.8 % (0.1-6.8); HEMOGLOBIN 11.1 g/dL (12.9-17.7); LYMPHOCYTES ABSOLUTE AUTO 1.7 x10-3/uL (0.5-4.5); LYMPHOCYTES PERCENT AUTO 19.6 % (15.8-45.3); MEAN CORPUSCULAR HEMOGLOBIN 26.2 pg (27.0-33.3); MEAN CORPUSCULAR HGB CONC 32.8 g/dL (28.7-35.3); MEAN CORPUSCULAR VOLUME 79.9 fL (80.8-98.7); MEAN PLATELET VOLUME 8.6 fL (6.7-11.0); MONOCYTES ABSOLUTE AUTO 0.8 x10-3/uL (0.0-1.2); MONOCYTES PERCENT AUTO 8.7 % (5.5-15.2); NEUTROPHILS PERCENT AUTO 68.5 % (40.3-71.8); PLATELET COUNT,PLT 130 x10(3)uL (117-477); RED BLOOD CELL COUNT 4.26 x10(6)uL (3.90-5.90); RED CELL DISTRIBUTION WIDTH 15.6 % (12.4-15.0); WHITE BLOOD CELL COUNT,WBC 8.7 x10-3/uL (3.2-10.1)
[2025-01-11 06:45] LABS: A/G RATIO 0.7; ALANINE AMINOTRANSFERASE,ALT 33 U/L (12-36); ALBUMIN 2.7 g/dL (3.2-4.6); ALKALINE PHOSPHATASE 79 IU/L (56-112); ASPARTATE AMNIOTRANSFERASE,AST 19 IU/L (5-25); BILIRUBIN TOTAL 0.4 mg/dL (0.1-1.3); BLOOD UREA NITROGEN,BUN 20 mg/dL (7-18); BUN/CREATININE RATIO 18.2 (9-20); CALCIUM 8.6 mg/dL (8.6-10.2); CARBON DIOXIDE,CO2 31 mmol/L (21-32); CHLORIDE,CL 103 mmol/L (100-110); CREATININE 1.1 mg/dL (0.70-1.30); EST CRCL DRUG DOSING (CG) 58.07 mL/min; ESTIMATED GFR 69 mL/min (>60); GLUCOSE RANDOM 98 mg/dL (80-116); POTASSIUM,K 3.6 mmol/L (3.5-5.3); PROTEIN TOTAL,TP 6.4 g/dL (6.0-8.0); SODIUM,NA 139 mmol/L (135-145)
[2025-01-11] MEDS ORDERED: Insulin Lispro 100 Unit/ML 3 ML KwikPen SUBCUT SCH ×3 (07:31→08:00)
[2025-01-11] MEDS ORDERED: Insulin Glargine,Human Rec. Analog 100 Units/ML 3 ML Pen SUBCUT SCH (07:31)
[2025-01-11] MEDS: Insulin Lispro 100 Unit/ML 3 ML KwikPen SUBCUT SCH (09:03)
[2025-01-11] MEDS: Sulfamethoxazole/Trimethoprim 800-160 MG Tab PO SCH (09:24)
[2025-01-11] MEDS: Sodium Chloride 0.9% 10 ML Syringe FLUSH PRN (09:28)
[2025-01-15] MEDS ORDERED: Non-Formulary Medication 1 Each (Tirzepatide [Mounjaro] 2.5 MG/0.5 ML Pen.Injctr) SQ SCH (09:00)
== END 2025-01-11 10:45 ==
LOC: FB.ED 06:36 → FB.MS 09:11
PROVIDERS: ADMIT Family Medicine; ATTEND Family Medicine
DX: K92.0 Hematemesis (principal); I10 Essential (primary) hypertension; K56.690 Other partial intestinal obstruction; E78.00 Pure hypercholesterolemia, unspecified; I25.10 Atherosclerotic heart disease of native coronary artery without angina pectoris; E11.9 Type 2 diabetes mellitus without complications; E66.9 Obesity, unspecified; Z79.4 Long term (current) use of insulin; Z79.82 Long term (current) use of aspirin
CPT/HCPCS: 36415; 74177; 80053; 81001; 83735; 85025; 87086; 87088; 87186; 94150; 96361; 96374; 96376; 99222; 99238; 99285; 99285-25; A9270-GY; G0378; J1815; J1815-GY; J2470; J7030; Q9967